=== PATIENT | female | born 2005 | race Caucasian/White ===

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

== ENCOUNTER 2025-01-09 19:45 | Emergency (ER) | payer BC, SELFPAY ==
--- OUTSIDE RECORDS SUMMARY | 2025-01-09 19:48 | XMS_ITS | Encounter Summary ---
Author Organization [place] Address [facility] [place] [address] Care Team Providers Care Automotive Tire Testing Supervisor Name Role Phone [facility], [facility] Primary Care Provider Encounter Details Date Type Department Care Team (Late st Contact Info) Description 01/04/2025 Documentation Only [facility] [place] [address] [place], [place] [phone] Demi Beard RN Social History Tobacco Use Types Packs/Day Years Used Date Smoking Tobacco: Never Smokeless Tobacco: Never Alcohol Use Standard Drinks/Week Comments Not Asked 0 (1 standard drink = 0.6 oz pur e alcohol) Adolescent Education Answer Date Record ed Getting School Help Needed Not on file 06/01 Estimated Date of Delivery Comme nts Yes 08/13/2025 Based on Ultraso und Sex and Gender Information Value Date Recorded Sex Assigned at Not on file Legal Sex Female 4:49 AM 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 [address] [place], [place] [phone] PCP - General 09/26/15 documented as of this encounter
--- OUTSIDE RECORDS SUMMARY | 2025-01-09 19:48 | XMS_ITS | Encounter Summary ---
Author Organization [place] Address [address] [place] [address]. [place] [address] Care Team Providers Care Agricultural Plow Operator Name Role Phone [facility], [facility] Primary Care Provider Reason for Visit * Reason Comments Ultrasound L2-BMI 45 Encounter Details Date Type Department Care Team (Late st Contact Info) Description 09/22/2023 PRE VISIT [facility] [place] [address] [facility] [address] [place] [address] Uzma Dang RN Ultrasound (L2-BMI [...] on file Legal Sex Female 4:49 AM STONE LAYER Gender Identity Not on file Sexual Orientation Not on file documented as of this encounter Plan of Treatment Not on file documented as of this encounter Visit Diagnoses Not on filedocumented in this encounter Care Teams Agricultural Plow Operator Relationship Specialty Start Date End Date [facility], [facility] [address] [place], [place] [phone] PCP - General 09/26/15 documented as of this encounter
--- OUTSIDE RECORDS SUMMARY | 2025-01-09 19:48 | XMS_ITS | Encounter Summary ---
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 Radha Schaefer, RN [facility] Nurse Advisor 7:36 AM 12/11/2024 documented in this encounter Plan of Treatment Not on file documented as of this encounter Visit Diagnoses Not on filedocumented in this encounter Care Teams Paradi Operator Relationship Specialty Start Date End Date [facility], [facility] [place] [address] [place] [address] PCP - General 09/26/15 documented as of this encounter
--- OUTSIDE RECORDS SUMMARY | 2025-01-09 19:48 | XMS_ITS | Encounter Summary ---
Author Organization [place] Address [address] [place] [place] [address] Care Team Providers Care Associate Curator Name Role Phone [facility], [facility] [place] Primary Care Provider Encounter Details Date Type Department Care Team (Late st Contact Info) Description 01/03/2025 Telephone [facility] [place] [address] [place], [place] [phone] Demi Beard RN Social History Tobacco Use [...] on file Legal Sex Female 4:49 AM PETROLEUM SAMPLER Gender Identity Not on file Sexual Orientation Not on file documented as of this encounter Miscellaneous Notes * Telephone Encounter - Demi Beard RN - 01/03/2025 11:06 AM CDT Call back from rosa Mcneil fax over op note from prior C/S. * Telephone Encounter - Demi Beard RN - 01/03/2025 9:54 AM CDT LVM for Khurram at [facility], called to get records of Cosmo's prior delivery and op note. documented in this encounter Plan of Treatment Not on file documented as of this encounter Visit Diagnoses Not on filedocumented in this encounter Care Teams Associate Curator Relationship Specialty Start Date End Date [facility], [facility] [place] [address] [place] [address] PCP - General 09/26/15 documented as of this encounter
--- OUTSIDE RECORDS SUMMARY | 2025-01-09 19:48 | XMS_ITS | Encounter Summary ---
Author Organization [place] Address Critical access hospital0 [facility] 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
--- OUTSIDE RECORDS SUMMARY | 2025-01-09 19:48 | XMS_ITS | Encounter Summary ---
Author Organization [place] Address [address] [place] [address]. [place] [address] Care Team Providers Care Orthotics Prosthetics Assistant Name Role Phone [facility] [place] Primary Care Provider Encounter Details Date Type Department Care Team (Late st Contact Info) Description 12/29/2024 Medical Correspondence [facility] Information Management [address] [facility] [address] [place] [address] Scan, Non-Provider Social History Tobacco Use Types Packs/Day Years [...] on file Legal Sex Female 4:49 AM EEG TECH Gender Identity Not on file Sexual Orientation Not on file documented as of this encounter Plan of Treatment Not on file documented as of this encounter Visit Diagnoses Not on filedocumented in this encounter Care Teams Orthotics Prosthetics Assistant Relationship Specialty Start Date End Date [facility] [address] [place], [place] [phone] PCP - General 09/26/15 documented as of this encounter
--- OUTSIDE RECORDS SUMMARY | 2025-01-09 19:48 | XMS_ITS | Encounter Summary ---
Author Organization [place] Address [facility] 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
--- OUTSIDE RECORDS SUMMARY | 2025-01-09 19:48 | XMS_ITS | Clinical Summary ---
Author Organization [place] Address [address] [place] [address]. [place] [address] Care Team Providers Care Mat Roller Name Role Phone [facility] [place] Primary Care Provider Allergies No known active [...] nts Yes 08/13/2025 Based on Ultraso und Encounters Date Type Department Care Team Description 01/04/2025 PRE VISIT [facility] [place] [address] [place] [address] Demi Beard RN Genetic Counseling; Ultrasound; Consult 01/04/2025 Documentation Only [facility] [place] [address] [place] [address] Demi Beard RN 01/03/2025 Orders Only [facility] [address] [place] [address] Demi Beard RN Obesity during (Primary Dx); Family history of congenital heart defect 01/03/2025 Telephone [facility] [address] [place] [address] Demi Beard RN 01/03/2025 Care Coordination [facility] [address] [place] [address] Demi Beard RN 12/29/2024 Medical Correspondence [facility] Information Management [address] [place] [address] [address] [place] [address] Scan, Non-Provider 12/29/2024 Transcribe Orders [facility] Maternal [facility] [address] [facility] [address] [place] [address] Melissa Grijalva APRN CNM related condition, antepartum (Primary Dx) 12/11/2024 Telephone [facility] [address] [place] [address] Chanel Schaefer, RN Patient Request from Last 3 Months Social History Tobacco [...] on file Legal Sex Female 4:49 AM TECHNICAL DEVELOPER Gender Identity Not on file Sexual Orientation Not on file Last Filed Vital Signs Vital Sign Reading Time Taken Comments Blood Pressure 120/55 08/05/2021 8:36 AM TECHNICAL DEVELOPER Pulse 102 08/05/2021 8:36 AM TECHNICAL DEVELOPER Temperature 37.2 C (99 F) 08/05/2021 8:36 AM TECHNICAL DEVELOPER Respiratory Rate 16 08/05/2021 8:36 AM TECHNICAL DEVELOPER Oxygen Saturation 96% 08/05/2021 8:36 AM TECHNICAL DEVELOPER Inhaled Oxygen Concentration - - Weight 118.1 kg (260 lb 6.4 oz) 08/05/2021 8:36 AM TECHNICAL DEVELOPER Height 165.1 cm (5' 5) 08/05/2021 8:3 6 AM TECHNICAL DEVELOPER Body Mass Index 43.33 08/05/2021 8:36 AM TECHNICAL DEVELOPER Body Mass Index Percentile 99.86% 08/05/2021 8:3 6 AM TECHNICAL DEVELOPER Growth Chart: CDC (Girls, 2- 20 Years) Plan of Treatment Health Maintenance Due Date Last Done Comments ADVANCE CARE PLANNING 2005 ANNUAL REVIEW OF HM ORDERS 2005 CHLAMYDIA SCREENING 2005 YEARLY PREVENTIVE VISIT 2008 HIV SCREENING 2020 MENINGITIS B VACCINE (1 of 2 - Standard) 2021 HEPATITIS C SCREENING 2023 COVID-19 VACCINE ( season) 2024 PHQ-2 (once per calendar year) 2024 MATERNAL SCREENING DISCUSSION 01/15/2025 INFLUENZA VACCINE (Season Ended) 2025 07/15/2017, 05/14/2016, 05/17/2015, Additional history exists RSV VACCINE (1 - Risk 1-dose series) 06/18/2025 DTAP/TDAP/TD VACCINE (8 - Td or Tdap) 01/06/2034 01/07/2024, 11/08/2017, 02/27/2011, Additional history exists ZOSTER VACCINE (1 of 2) 2055 HIB VACCINE Aged Out 2005, 07/17, 2005 No longer eligible based on patient's age to complete this topic HEPATITIS B VACCINE Completed 2005, 2005, 2005 PNEUMOCOCCAL VACCINE: PEDIATRICS (0 to 5 YEARS) AND AT-RISK PATIENTS (6 to 49 YEARS) Aged Out 05/08/2008, 2005, 2005, Additional history exists No longer eligible based on patient's age to complete this topic IPV VACCINE Completed 02/27/2011, 0508/2005, 2005, Additional history exists VARICELLA VACCINE Completed 02/27/2011, 06/18/2006 MENINGITIS VACCINE Aged Out 11/08/2017, 11/08/2017 No longer eligible based on patient's age to complete this topic HPV VACCINE Completed 12/23/2018, 11/08/2017 [place] Care Teams Mat Roller Relationship Specialty Start Date End Date Clinic, [facility] [address] [facility] [place] [address] PCP - General 09/26/15
--- OUTSIDE RECORDS SUMMARY | 2025-01-09 19:48 | XMS_ITS | Encounter Summary ---
Author Organization [facility] Address [address] [place] [address] Care Team Providers Care Linen Supervisor Name Role Phone [facility], [facility] Primary Care Provider Reason for Referral * CV Testing (Routine) - Pending Review Specialty Diagnoses / Procedures Referred By Kandy kiser Referred To Contact Diagnoses Obesity during Family history of congenital heart defect Procedures Echo (TTE) Complete Kaleigh Orozco MD [address] [address] Phone: tel: fax: Referral ID Status Reason Start Date Expiration Date V isits Requested Visits Authorized [id number] Pending Review 01/03/2025 01/03/2026 1 1 * Consultation (Routine: Next available opening) - Pending Review Specialty Diagnoses / Procedures Referred By Kandy kiser Referred To Contact Diagnoses Obesity during Family history of congenital heart defect Kaleigh Orozco MD [address] [place] [address] Phone: tel: fax: Referral ID Status Reason Start Date Expiration Date V isits Requested Visits Authorized [id number] Pending Review 01/03/2025 01/03/2026 1 1 * Consultation (Routine: Next available opening) - Pending Review Specialty Diagnoses / Procedures Referred By Contac t Referred To Contact Diagnoses Obesity during Family history of congenital heart defect Kaleigh Orozco MD [address] [place] [address] Phone: tel: fax: Referral ID Status Reason Start Date Expiration Date V isits Requested Visits Authorized [id number] Pending Review 01/03/2025 01/03/2026 1 1 Question Answer Office Visit Type: MFM Consult Comments RAD consult * Diagnostic Imaging Ultrasound (Routine) - Pending Review Specialty Diagnoses / Procedures Referred By Contac t Referred To Contact Radiology. Diagnoses Obesity during Family history of congenital heart defect Procedures Maternal Nuchal Translucency Kaleigh Orozco MD [address] [place] [address] Phone: tel: fax: Referral ID Status Reason Start Date Expiration Date V isits Requested Visits Authorized [id number] Pending Review 01/03/2025 01/03/2026 1 1 * Diagnostic Imaging Ultrasound (Routine) - Pending Review Specialty Diagnoses / Procedures Referred By Contac t Referred To Contact Radiology. Diagnoses Obesity during Family history of congenital heart defect Procedures [facility] US Comprehensive Single Kaleigh Orozco MD [address] [place] [address] Phone: tel: fax: Referral ID Status Reason Start Date Expiration Date V isits Requested Visits Authorized [id number] Pending Review 01/03/2025 01/03/2026 1 1 Encounter Details Date Type Department Care Team (Late st Contact Info) Description 01/03/2025 Orders Only [facility] [place] [address] [place] [address] Demi Beard RN Obesity during (Primary Dx); Family history of congenital heart defect Social History Tobacco Use Types Packs/Day Years [...] on file 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 Gender Identity Not on file Sexual Orientation Not on file documented as of this encounter Plan of Treatment Scheduled Orders Name Type Priority Associated Diagnoses Order Schedule [facility] Comprehensive Single Imaging Routine Obesity during Family history of congenital heart defect Expected: 03/14/2025 (Approximate), Expires: 11/03/2025 Maternal Nuchal Translucency Imaging Routine Obesity during Family history of congenital heart defect Expected: 01/31/2025 (Approximate), Expires: 11/03/2025 Echo (TTE) Complete Echocardiography Routine Obesity during Family history of congenital heart defect Expected: 04/11/2025 (Approximate), Expires: 01/03/2026 Scheduled Referrals Name Type Priority Associated Diagnoses Orde r Schedule [facility] Office Visit - [facility] Consult Referral Routine: Next available opening Obesity during Family history of congenital heart defect Expected: 01/31/2025 (Approximate), Expires: 01/03/2026 [facility] Genetic Counseling Referral Routine: Next available opening Obesity during Family history of congenital heart defect Expected: 01/31/2025 (Approximate), Expires: 01/03/2026 documented as of this encounter Visit Diagnoses Diagnosis Obesity during - Primary Family history of congenital heart defect Family history of congenital anomalies documented in this encounter Care Teams Linen Supervisor Relationship Specialty Start Date End Date Clinic, [facility] [address] [place] [address] PCP - General 09/26/15 documented as of this encounter
--- OUTSIDE RECORDS SUMMARY | 2025-01-09 19:48 | XMS_ITS | Clinical Summary ---
Author Organization [employer] Address [address] [place] [address] Care Team Providers Care Salesperson Men'S Hats Name Role Phone Pcp, No Primary Care Provider Unavailabl Esthela Archibald MBBS Unavailable [phone] Unavailable Adeola Colindres PT Unavailable [phone] Allergies Active Allergy Reactions Criticality Noted Date [...] 8 Acute sanguinous otitis media 12/01/2007 11/07/2009 Immunizations Immunization Administration Dates Next Due DTaP 05/08/2008 [id number] (Pediarix) 2005,2005,1 10/13/2004 DTaP-IPV (Kinrix) 02/27/2011 HIB [...] on file Legal Sex Female 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 Gender Identity Not on file Sexual Orientation Not on file Obstetrics History Para Term AB IAB SAB Ectopic Multiple Livin g Live Births 1 Date Outcome GA Total Labor Labor/2nd/3rd Weight Sex Type Anes PTL Annika A1 A5 Name Clin Last Filed Vital Signs Vital Sign Reading Time Taken Comments Blood Pressure 122/64 09/21/2024 2:11 PM CORPORATE PLANNING MANAGER Pulse 85 09/21/2024 2:11 PM CORPORATE PLANNING MANAGER Temperature 36.9 C (98.4 F) 12/29/2023 9:30 PM CDT Respiratory Rate 16 12/29/2023 9:30 PM CDT Oxygen Saturation 98% 09/21/2024 2:11 PM CORPORATE PLANNING MANAGER Inhaled Oxygen Concentration - - Weight 145.7 kg (321 lb 3.2 oz) 09/21/2024 2:11 PM CORPORATE PLANNING MANAGER Height 168.5 cm (5' 6.34) 09/21/2024 2:11 PM CS T Head Circumference 47 cm 06/18/2006 9:45 AM CORPORATE PLANNING MANAGER Head Circumference Percentile 93.42% 06/18/2006 9:45 AM CORPORATE PLANNING MANAGER Growth Chart: WHO (Girls, 0- 2 years) Body Mass Index 51.31 09/21/2024 2:11 PM CORPORATE PLANNING MANAGER Plan of Treatment Health Maintenance Due Date Last Done Comments Well Child Check for age 3-20 12/24/2019 12/23/2018, 11/08/2017, 02/27/2011, Additional history exists HIV for age 15-65 2020 Chlamydia for age 16-24 2021 Hepatitis C screening for age 18-79 2023 COVID-19 vaccine series ( season) 2024 Influenza Vaccine (Season Ended) 2025 07/15/2017, 05/14/2016, 05/17/2015, Additional history exists Depression screening for age 12+ 05/19/2025 05/19/2024, 09/22/2022, 11/01/2020, Additional history exists BMI (ht and wt on same day) for age 18+ 09/21/2025 09/21/2024, 05/19/2024 Tetanus booster 01/06/2034 01/07/2024, 11/08/2017 Hepatitis B series for 19+ Completed 12/14, 2005, 2005 Pneumococcal series for age 6-49 Aged Out 05/08/2008, 2005, 2005, Additional history exists No longer eligible based on patient's age to complete this topic Meningococcal series for age 11-21 Aged Out 11/08/2017 No longer eligible based on patient's age to complete this topic HPV series for age 9-26 Completed 12/23/2018, 11/08 Tdap Completed 01/07/2024, 11/08/2017 Insurance [place] CROSS OF NON-NC-ITS BLUE CROSS OF NON-NC-ITS Advance Directives * Full Code (Latest Code Status on File) Date Activated Date Inactivated Comments 11/11/2009 11:27 AM 11/11/2009 3:14 PM Care Teams Salesperson Men'S Hats Relationship Specialty Start Date End Date Pcp, No . PCP - General 12/29/23 Esthela Leroy MBBS [address] [place] [address] Consulting Physician Family Practice 11/27/[address] [place] [id number] Event Lighting Specialist 11/27/24 Adeola Colindres, PT [address] [place] [id number] Physical Therapist Physical Therapist 12/04/24
--- OUTSIDE RECORDS SUMMARY | 2025-01-09 19:48 | XMS_ITS | Encounter Summary ---
Author Organization [facility] Address [address] [place] [address]. [place] [address] Care Team Providers Care Senior Asset Manager Name Role Phone [facility] Primary Care Provider Reason for Referral * Consultation (Routine: Next available opening) - Pending Review Specialty Diagnoses / Procedures Referred By Contac t Referred To Contact Diagnoses related condition, antepartum Rudi, Melissa, [facility] [address] [place] [address] Phone: tel: fax: [facility] [place] [address] [place] [address] Phone: tel: fax: Referral ID Status Reason Start Date Expiration Date V isits Requested Visits Authorized [id number] Pending Review 12/29/2024 12/29/2025 1 1 Question Answer Preferred Location: [facility] Working Due Date: 08/13/2025 US Ordering Instructions: If US ONLY is requested, select appropriate US Order and DO NOT order MFM Consult. Reason for Referral: Consult Consult Type: MF MD (Consult may be ordered for clinical questions beyond US interpretation) Indication (* indicates inclusion of genetic counseling): Other (enter details in Comments) - obesity and on ozempic at time of conception Fax number results need to be sent to: [facility] Melissa Grijalva [phone] Comments obesity and on ozempic at time of conception Encounter Details Date Type Department Care Team (Latest Contact Info) Description 12/29/2024 Transcribe Orders [facility] [address] [place] [address] Melissa Grijalva APRN CNM [facility] [address] [place] [address] related condition, antepartum (Primary Dx) Social History Tobacco Use Types [...] on file Legal 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 Gender Identity Not on file Sexual Orientation Not on file documented as of this encounter Plan of Treatment Scheduled Referrals Name Type Priority Associated Diagnoses Orde r Schedule [facility] Referral - Referral Routine: Next available opening related condition, antepartum Expected: 12/29/2024 (Approximate), Expires: 06/27/2025 documented as of this encounter Visit Diagnoses Diagnosis related condition, antepartum- Primary documented in this encounter Care Teams Senior Asset Manager Relationship Specialty Start Date End Date Clinic, [facility] [address] [place], [place] [id number] PCP - General 09/26/15 documented as of this encounter
[2025-01-09 19:49] VITALS: BP 135/81; PULSE 94; RESP 20; TEMP 35.8; O2SAT 98; BMI 52.3
--- NOTE | 2025-01-09 20:02 | CRLHL7_ITS ---
For Patients: As a result of the Century Cures Act, medical imaging exams and procedure reports are released immediately into your electronic medical record. You may view this report before your referring provider. If you have questions, please contact your health care provider. INDICATION: First trimester dating and viability. TECHNIQUE: Ultrasound OB pelvis transabdominal and transvaginal. Real-time carmona-scale imaging of the pelvis was performed. COMPARISON: None. FINDINGS: Intrauterine gestation: Single. heart activity (bpm): 167 beats per minute. [place]-rump length: 2.5 cm. Estimated ultrasound age: 9 weeks 1 day. JERSON by ultrasound: 08/13/2025. Yolk sac: Normal. Perigestational hemorrhage: Subchorionic hematoma measuring 2.3 x 0.7 x 0.5 cm. Ovaries and adnexa: Right ovary not visualized. Left ovary unremarkable. Suspicious pelvic fluid collections: None. IMPRESSION: Single viable intrauterine . Subchorionic hematoma measuring up to 2.3 cm. Dictated by Charlie Tipton MD @ 01/09/2025 10:50:34 PM (Electronically Signed)
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
[2025-01-09 20:18] VITALS: BP 137/75; PULSE 88; RESP 16; O2SAT 98
[2025-01-09 20:30] LABS: Ur HCG Qualitative* POSITIVE (Negative)
== END 2025-01-09 21:50 | disposition home or self-care (01) ==
PROVIDERS: Emergency Provider Emergency Medicine Emergency Medical Services
DX: O46.91 Antepartum hemorrhage, unspecified, first trimester (principal)
CPT/HCPCS: 36415; 76817; 81025; 84702; 99284

== ENCOUNTER 2025-02-06 22:56 | Emergency (ER) | payer BC, SELFPAY ==
--- OUTSIDE RECORDS SUMMARY | 2025-02-06 22:58 | XMS_ITS | Clinical Summary ---
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 Gender Identity Not on file Sexual Orientation Not on file Obstetrics History Para Term AB IAB SAB Ectopic Multiple Livin g Live Births 1 Date Outcome GA Total Labor Labor/2nd/3rd Weight Sex Type Anes PTL Annika A1 A5 Name Clin Last Filed Vital Signs Vital Sign Reading Time Taken Comments Blood Pressure 122/64 09/21/2024 2:11 PM INDUSTRIAL GAS SERVICE HELPER Pulse 85 09/21/2024 2:11 PM INDUSTRIAL GAS SERVICE HELPER Temperature 36.9 C (98.4 F) 12/29/2023 9:30 PM CDT Respiratory Rate 16 12/29/2023 9:30 PM CDT Oxygen Saturation 98% 09/21/2024 2:11 PM INDUSTRIAL GAS SERVICE HELPER Inhaled Oxygen Concentration - - Weight 145.7 kg (321 lb 3.2 oz) 09/21/2024 2:11 PM INDUSTRIAL GAS SERVICE HELPER Height 168.5 cm (5' 6.34) 09/21/2024 2:11 PM CS T Head Circumference 47 cm 06/18/2006 9:45 AM INDUSTRIAL GAS SERVICE HELPER Head Circumference Percentile 93.42% 06/18/2006 9:45 AM INDUSTRIAL GAS SERVICE HELPER Growth Chart: WHO (Girls, 0- 2 years) Body Mass Index 51.31 09/21/2024 2:11 PM INDUSTRIAL GAS SERVICE HELPER Plan of Treatment Health Maintenance Due Date [...] 12/23/2018, 11/08 Tdap Completed 01/07/2024, 11/08/2017 Insurance [place] CROSS OF NON-DE-ITS BLUE CROSS OF NON-DE-ITS Advance Directives * Full Code (Latest Code Status on File) Date Activated Date Inactivated Comments 11/11/2009 11:27 AM 11/11/2009 3:14 PM Care Teams Accounts Payable Supervisor Relationship Specialty Start Date End Date Pcp, No . PCP - General 12/29/23 Esthela Leroy MBBS [address] [place] [place] [address] Consulting Physician Family Practice 11/27/[address] [place] [id number] Surgical Supply Assistant 11/27/24 Adeola Colindres, PT [address] [place] [id number] Physical Therapist Physical Therapist 12/04/24
[2025-02-06 23:06] VITALS: BP 151/98; PULSE 79; RESP 16; TEMP 36.7; O2SAT 100; BMI 53.4
[2025-02-06 23:15] LABS: Appearance Urine Cloudy (Clear); Bilirubin Urine Negative (Negative); Blood Urine 3+ (Negative); Color Urine Yellow (Yellow); Glucose Urine Negative (Negative); Ketones Urine 3+ (Negative); Leukocyte Esterase Urine Negative (Negative); Nitrite Urine Negative (Negative); Protein Urine 1+ (Negative); Specific Gravity Urine >= 1.030 (1.000-1.030); Urobilinogen Urine 0.2 (0.2-1.0)
[2025-02-06 23:27] LABS: Bacteria Urine Few; Squamous Epithelial Cell Urine Moderate (None-Few)
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
--- OUTSIDE RECORDS SUMMARY | 2025-02-06 23:56 | XMS_ITS | Encounter Summary ---
Author Organization [place] Address [address] [facility] 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 [place] [address] Kaleigh Orozco MD [address] [facility] [address] [place] [address] documented as of this encounter Visit Diagnoses Not on filedocumented in this encounter Care Teams Chief Lock Tender Operator Relationship Specialty Start Date End Date [facility], Saida Norris [address] [place] [address] PCP - General 09/26/15 documented as of this encounter
--- OUTSIDE RECORDS SUMMARY | 2025-02-06 23:56 | XMS_ITS | Encounter Summary ---
Author Organization [place] Address [facility] [place] [address] Care Team Providers Care Hr Specialist Name Role Phone Clinic, Saida [place] Primary Care Provider Reason for Referral * CV Testing (Routine) - Pending Review Specialty Diagnoses / Procedures Referred By Contac t Referred To Contact Diagnoses Obesity during Family history of congenital heart defect Procedures Echo (TTE) Complete Kaleigh Orozco MD [address] [address] Phone: tel: fax: Referral ID Status Reason Start Date Expiration Date V isits Requested Visits Authorized [id number] Pending Review 01/03/2025 01/03/2026 1 1 Encounter Details Date Type Department Care Team (Late st Contact Info) Description 01/03/2025 Orders Only [facility] [place] [address] [place] [address] Demi Beard RN Obesity during (Primary Dx); [...] on file 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 Gender Identity Not on file Sexual Orientation Not on file documented as of this encounter Plan of Treatment Upcoming Encounters Date Type Department Care Team (Late st Contact Info) Description 04/12/2025 8:00 AM CDT Appointment [facility] Care [address] [place] [phone] Kaleigh Orozco MD [address] [facility] [address] [facility] [address] [place], [place] [address] Scheduled Orders Name Type Priority Associated Diagnoses Orde r Schedule Echo (TTE) Complete Echocardiography Routine Obesity during Family history of congenital heart defect Expected: 04/11/2025 (Approximate), Expires: 01/03/2026 documented as of this encounter Visit Diagnoses Diagnosis Obesity during - Primary Family history of congenital heart defect Family history of congenital anomalies documented in this encounter Care Teams Hr Specialist Relationship Specialty Start Date End Date Clinic, Saida Lawrence [address] [place], [place] [id number] PCP - General 09/26/15 documented as of this encounter
--- OUTSIDE RECORDS SUMMARY | 2025-02-06 23:56 | XMS_ITS | Encounter Summary ---
Author Organization [place] Address [address] [place] [address]. 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 Gender Identity Not on file Sexual Orientation Not on file documented as of this encounter Plan of Treatment Upcoming Encounters Date Type Department Care Team ([facility] Contact Info) Description 04/12/2025 8:00 AM CDT Appointment [facility] [address] [place] [address] Kaleigh Orozco MD [address] [place] [address] [place] [address] documented as of this encounter Visit Diagnoses Not on filedocumented in this encounter Care Teams Curb Builder Relationship Specialty Start Date End Date Clinic, Saida [place] [address] [place] [address] PCP - General 09/26/15 documented as of this encounter
--- OUTSIDE RECORDS SUMMARY | 2025-02-06 23:56 | XMS_ITS | Clinical Summary ---
Author Organization [place] Address [address] [place] [address]. [place] [address] Care Team Providers Care Child Welfare Worker Name Role Phone [facility] [place] Primary Care Provider Allergies No known active [...] Department Care Team Description 01/04/2025 PRE VISIT [facility] [place] [address] [place] [address] Demi Beard RN Genetic Counseling; Ultrasound; Consult 01/04/2025 Documentation Only [facility] [place] [address] [place] [address] Demi Beard RN 01/03/2025 Orders Only [facility] [address] [place] [address] Demi Beard RN Obesity during (Primary Dx); Family history of congenital heart defect 01/03/2025 Telephone [facility] [address] [place] [address] Demi Beard RN 01/03/2025 Care Coordination [facility] [address] [place] [address] Demi Beard RN 12/29/2024 Medical Correspondence [facility] Information Management [address] [place] [address] [address] [place] [address] Scan, Non-Provider 12/29/2024 Transcribe Orders [facility] [address] [facility] [address] [place] [address] Melissa Grijalva APRN CNM related condition, antepartum (Primary Dx) 12/11/2024 Telephone [facility] [address] [place] [address] Chanel Schaefer, RN Patient Request [...] on file Legal 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 Gender Identity Not on file Sexual Orientation Not on file Last Filed Vital Signs Vital Sign Reading Time Taken Comments Blood Pressure 120/55 08/05/2021 8:36 AM DRAGSAW OPERATOR Pulse 102 08/05/2021 8:36 AM DRAGSAW OPERATOR Temperature 37.2 C (99 F) 08/05/2021 8:36 AM DRAGSAW OPERATOR Respiratory Rate 16 08/05/2021 8:36 AM DRAGSAW OPERATOR Oxygen Saturation 96% 08/05/2021 8:36 AM DRAGSAW OPERATOR Inhaled Oxygen Concentration - - Weight 118.1 kg (260 lb 6.4 oz) 08/05/2021 8:36 AM DRAGSAW OPERATOR Height 165.1 cm (5' 5) 08/05/2021 8:3 6 AM DRAGSAW OPERATOR Body Mass Index 43.33 08/05/2021 8:36 AM DRAGSAW OPERATOR Body Mass Index Percentile 99.86% 08/05/2021 8:3 6 AM DRAGSAW OPERATOR Growth Chart: CDC (Girls, 2- 20 Years) Plan of Treatment Upcoming Encounters Date Type Department Care Team (Late st Contact Info) Description 04/12/2025 8:00 AM CDT Appointment [facility] Care [address] [place] [address] Kaleigh Orozco MD [address] [facility] [address] [place] [address] Health Maintenance Due Date Last Done Comments ADVANCE CARE PLANNING 2005 ANNUAL REVIEW OF HM ORDERS 2005 CHLAMYDIA SCREENING 2005 YEARLY PREVENTIVE VISIT 2008 HIV SCREENING 2020 MENINGITIS B VACCINE (1 of 2 - Standard) 2021 HEPATITIS C SCREENING 2023 COVID-19 VACCINE ( - season) 2024 PHQ-2 (once per calendar year) [...] complete this topic IPV VACCINE Completed 02/27/2011, 08/2005, 2005, Additional history exists VARICELLA VACCINE Completed 02/27/2011, 06/18/2006 MENINGITIS VACCINE Aged Out 11/08/2017, 11/08/2017 No longer eligible based on patient's age to complete this topic HPV VACCINE Completed 12/23/2018, 11/08/2017 [place] Care Teams Child Welfare Worker Relationship Specialty Start Date End Date Clinic, Saida [place] [address] [place] [address] PCP - General 09/26/15
--- OUTSIDE RECORDS SUMMARY | 2025-02-06 23:56 | XMS_ITS | Encounter Summary ---
Author Organization [place] Address [address] [place] [address]. [place] [address] Care Team Providers Care Varnish Supervisor Name Role Phone [facility], [facility] Primary Care Provider Reason for Referral * Consultation (Routine: Next available opening) - Pending Review Specialty Diagnoses / Procedures Referred By Contac t Referred To Contact Diagnoses related condition, antepartum Rudi, Melissa, [facility] [address] [place] [address] Phone: tel: fax: [facility] [place] [address] [facility] [address] [place] [address] Phone: tel: fax: Referral ID Status Reason Start Date Expiration Date V isits Requested Visits Authorized [id number] Pending Review 12/29/2024 12/29/2025 1 1 Question Answer Preferred Location: [facility] Working Due Date: 08/13/2025 [place] Ordering Instructions: [...] number results need to be sent to: [facility] Melissa Grijalva [phone] Comments obesity and on ozempic at time of conception Encounter Details Date Type Department Care Team (Latest Contact Info) Description 12/29/2024 Transcribe Orders [facility] [place] [address] [facility] [address] [place] [address] Melissa Grijalva APRN [place] [facility] [address] [place] [address] related condition, antepartum (Primary Dx) Social History [...] on file 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 Gender Identity Not on file Sexual Orientation Not on file documented as of this encounter Plan of Treatment Upcoming Encounters Date Type Department Care Team (Late st Contact Info) Description 04/12/2025 8:00 AM CDT Appointment [facility] [address] [place] [address] Kaleigh Orozco MD [address] [facility] [address] [place], [place] [address] Scheduled Referrals Name Type Priority Associated Diagnoses Orde r Schedule [facility] Referral - Referral Routine: Next available opening related condition, antepartum Expected: 12/29/2024 (Approximate), Expires: 06/27/2025 documented as of this encounter Visit Diagnoses Diagnosis related condition, antepartum- Primary documented in this encounter Care Teams Varnish Supervisor Relationship Specialty Start Date End Date Clinic, Saida Lawrence [address] [place] [address] PCP - General 09/26/15 documented as of this encounter
--- OUTSIDE RECORDS SUMMARY | 2025-02-06 23:56 | XMS_ITS | Encounter Summary ---
Author Organization [place] Address [address] [facility] 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 Gender Identity Not on file Sexual Orientation Not on file documented as of this encounter Plan of Treatment Upcoming Encounters Date Type Department Care Team (Late Contact Info) Description 04/12/2025 8:00 AM CDT Appointment [facility] [address] [place] [address] Kaleigh Orozco MD [address] [place] [address] documented as of this encounter Visit Diagnoses Not on filedocumented in this encounter Care Teams Truck Body Builder Apprentice Relationship Specialty Start Date End Date [facility], Saida [place] [address] [place] [address] PCP - General 09/26/15 documented as of this encounter
--- OUTSIDE RECORDS SUMMARY | 2025-02-06 23:56 | XMS_ITS | Encounter Summary ---
Author Organization [place] Address [address] 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 * Telephone Encounter - Demi Beard RN - 01/03/2025 9:54 AM CDT LVM for Khurram at [facility], called to get records of Cosmo's prior delivery and op note. documented in this encounter Plan of Treatment Upcoming Encounters Date Type Department Care Team (Late st Contact Info) Description 04/12/2025 8:00 AM CDT Appointment [facility] [place] [facility] Care [address] [place] [address] Kaleigh Orozco MD [address] [facility] [address] [facility] [address] [place] [address] documented as of this encounter Visit Diagnoses Not on filedocumented in this encounter Care Teams Title Insurance Sales Representative Relationship Specialty Start Date End Date Clinic, Saida Lawrence [address] [place] [address] PCP - General 09/26/15 documented as of this encounter
--- OUTSIDE RECORDS SUMMARY | 2025-02-06 23:56 | XMS_ITS | Encounter Summary ---
Author Organization [place] Address [address] [place] [address]. 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 CAR PARKER Gender Identity Not on file Sexual Orientation Not on file documented as of this encounter Plan of Treatment Upcoming Encounters Date Type Department Care Team ([facility] Contact Info) Description 04/12/2025 8:00 AM CDT Appointment [facility] [address] [place] [address] Kaleigh Orozco MD [address] [place] [address] documented as of this encounter Visit Diagnoses Not on filedocumented in this encounter Care Teams Marketing Communications Assistant Relationship Specialty Start Date End Date [facility], Saida [place] [address] [place] [address] PCP - General 09/26/15 documented as of this encounter
--- OUTSIDE RECORDS SUMMARY | 2025-02-06 23:56 | XMS_ITS | Encounter Summary ---
Author Organization [facility] Address [address] [place] [address]. 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, [facility] [id number] [place], [place] [id number] PCP - General 09/26/15 documented as of this encounter
--- NOTE | 2025-02-07 00:03 | CRLHL7_ITS ---
For Patients: As a result of the Century Cures Act, medical imaging exams and procedure reports are released immediately into your electronic medical record. You may view this report before your referring provider. If you have questions, please contact your health care provider. Indication: Left abdominal pain, hematuria Technique: Sonographic evaluation of the kidneys and bladder Comparison: None Findings: Right: 12.4 x 4.4 x 6.1 centimeters. No hydronephrosis. No calculi. Left: 12.3 x 4.6 x 6.4 centimeters. No hydronephrosis. No calculi. Bladder: Unremarkable. Impression: No significant sonographic abnormality appreciated. Dictated by Vaibhav Beal MD @ 02/07/2025 1:09:39 AM (Electronically Signed)
--- NOTE | 2025-02-07 12:05 | CRLHL7_ITS ---
For Patients: As a result of the Century Cures Act, medical imaging exams and procedure reports are released immediately into your electronic medical record. You may view this report before your referring provider. If you have questions, please contact your health care provider. INDICATION: Abdominal pain. TECHNIQUE: Ultrasound OB pelvis transabdominal and transvaginal. Real-time carmona-scale imaging of the pelvis was performed. COMPARISON: None. FINDINGS: There is a single intrauterine gestation. The embryo demonstrates a regular cardiac rate measuring 150 beats per minute. The embryo`s crown rump length measurement of 7.6 cm corresponds to a gestational age of 13 weeks, 5 days with a sonographic due date of 08/10/2025. There are no gross abnormalities noted within the embryo at this early state of development. Posterior placenta. There is no sign of perigestational hemorrhage. The ovaries are of normal size. Probable tiny right corpus luteal cyst. There are no suspicious fluid collections noted in the cul-de-sac. IMPRESSION: Single viable intrauterine with gestational age of 13 weeks, 5 days based on crown-rump length. No abnormalities seen. Dictated by Rogerio Worrell MD @ 02/07/2025 1:12:11 AM (Electronically Signed)
== END 2025-02-07 01:52 | disposition home or self-care (01) ==
PROVIDERS: Emergency Medicine Emergency Medical Services; Emergency Provider Family Medicine; PCP Advanced Practice Midwife
DX: R10.9 Unspecified abdominal pain (principal); Z3A.13 13 weeks gestation of pregnancy
CPT/HCPCS: 76770; 76801; 81001; 81003; 87086; 99284

== ENCOUNTER 2025-02-28 10:26 | Outpatient (CLI) | payer BC, SELFPAY | END 2025-02-28 10:27 | disposition home or self-care (01) | PROVIDERS: PCP Advanced Practice Midwife; Visit Provider Advanced Practice Midwife | DX: Z34.82 Encounter for supervision of other normal pregnancy, second trimester (principal); R03.0 Elevated blood-pressure reading, without diagnosis of hypertension | CPT/HCPCS: 81511; 82565; 82570; 84156; 84450; 84460; 84550 ==

== ENCOUNTER 2025-03-01 14:30 | Outpatient (CLI) | payer BC, SELFPAY | END 2025-03-01 14:31 | disposition home or self-care (01) | PROVIDERS: PCP Advanced Practice Midwife; Referring Provider Advanced Practice Midwife; Visit Provider Advanced Practice Midwife | DX: O99.212 Obesity complicating pregnancy, second trimester (principal); E66.01 Morbid (severe) obesity due to excess calories; R03.0 Elevated blood-pressure reading, without diagnosis of hypertension; Z3A.16 16 weeks gestation of pregnancy | CPT/HCPCS: 82570; 84156 ==

== ENCOUNTER 2025-03-27 11:33 | Outpatient (CLI) | payer BC, SELFPAY | END 2025-03-27 11:34 | disposition home or self-care (01) | LOC: NFLDREF 03-30 19:42 | PROVIDERS: PCP Advanced Practice Midwife; Visit Provider Obstetrics & Gynecology | DX: O10.912 Unspecified pre-existing hypertension complicating pregnancy, second trimester (principal); O12.12 Gestational proteinuria, second trimester; Z3A.20 20 weeks gestation of pregnancy | CPT/HCPCS: 87491; 87591 ==

== ENCOUNTER 2025-05-25 14:23 | Outpatient (CLI) | payer BC, SELFPAY ==
--- NOTE | 2025-05-25 14:45 | CRLHL7_ITS ---
For Patients: As a result of the Century Cures Act, medical imaging exams and procedure reports are released immediately into your electronic medical record. You may view this report before your referring provider. If you have questions, please contact your health care provider. OBSTETRICAL ULTRASOUND FOLLOW-UP INDICATION: CHTN. Follow-up growth. CLINICAL HISTORY: JERSON by Ultrasound: 08/13/2025 Gestational Age: 28 weeks 4 days COMPARISON: 03/19/2025, 02/07/2025, 01/09/2025. TECHNIQUE: Real-time carmona-scale transabdominal imaging of the fetus was performed. FINDINGS: Fetus: Single Cervix: Not visualized positioning: Transverse Amniotic Fluid: 5.7 cm SDP Placenta technique: Transabdominal Placenta position: Posterior heart rate: 152 bpm BIOMETRY: BPD: 7.4 cm, 29 weeks 5 days, 74.6% HC: 27.6 cm, 30 weeks 1 day, 66.0% AC: 26.7 cm, 30 weeks 6 days, 94.9% FL: 5.5 cm, 29 weeks 0 days, 48.1% FL/AC Ratio: 20.57% HC/AC ratio: 1.03 EFW: 1513 grams; 3 lbs. 5 oz. age by this ultrasound: 30 weeks 0 days JERSON by this ultrasound: 08/03/2025 Percentile by JERSON: 89.6% IMPRESSION: 1. Sonographic gestational age is 30 weeks 0 days and sonographic due date is 08/03/2025. Sonographic age is 10 days ahead of the clinical age. 2. Estimated weight is 90th percentile. Abdominal circumference is 95th percentile. 3. Right renal pelvis measures 5.5 mm. Left renal pelvis measures 4.4 mm. CHARLIE SAHU M.D. Diagnostic Radiologist [email or web address] Transcribed: 5:[address]/Dictated by: Charlie Sahu MD @ 05/25/2025 4:38:00 PM (Electronically Signed)
== END 2025-05-25 14:24 | disposition home or self-care (01) ==
LOC: US 14:24
PROVIDERS: PCP Advanced Practice Midwife; Visit Provider Obstetrics & Gynecology
DX: O10.913 Unspecified pre-existing hypertension complicating pregnancy, third trimester (principal); O99.213 Obesity complicating pregnancy, third trimester; Z3A.28 28 weeks gestation of pregnancy
CPT/HCPCS: 76816; 86592

== ENCOUNTER 2025-06-03 21:09 | Outpatient (CLI) | payer BC, SELFPAY ==
[2025-06-03] VITALS (7 sets, daily range): BP systolic 117–154; BP diastolic 57–78; PULSE 84–100; O2SAT 97
[2025-06-03 22:18] LABS: Hematocrit* 31.7 % (33.0-51.0); Hemoglobin* 9.8 gm/dL (12.0-16.0); Mean Corpuscular HGB Conc 31 gm/dL (32-36); Mean Corpuscular Hemoglobin 25 pg (26-34); Mean Corpuscular Volume 81 fL (80-100); Red Blood Count* 3.94 m/uL (4.00-5.20); White Blood Count* 11.74 K/uL (4.50-11.00)
[2025-06-03 22:19] LABS: Slide Review Reflex No
[2025-06-03 22:33] LABS: Alanine Aminotransferase* 8 U/L (4-35); Aspartate Amino Transferase* 18 U/L (12-35); Blood Urea Nitrogen* 7 mg/dL (5-24); Creatinine* 0.6 mg/dL (0.6-1.2); Estimated Glomerular Filt Rate 133 ml/min
[2025-06-03 22:36] LABS: Appearance Urine Cloudy (Clear)
[2025-06-03 22:56] LABS: Protein Creatinine Ratio Urine 0.12 (0-0.19)
--- NOTE | 2025-06-04 00:05 | PC.OBNST ---
NST Note NST Note Start: 06/03/25 21:18 Freq: ONCE Status: Active Protocol: Document 06/03/25 23:20 [facility] (Rec: 06/04/25 00:05 [facility] No Response) NST Note 5 Para (# of births) 1 EDC 08/13/25 Gestational Age In 30 Weeks & 0 Days Weeks & Days High Risk Factors High Blood Pressure - Preexisting Patient Presented Contractions/cramping,Headache with Complaint(s) of Other Complaints Patient had high blood pressure readings at home. She states her swelling has increased in her hands and face and it hurts. She also has flank pain, right upper quadrant abdominal pain, bleeding yesterday, and contractions if she walks more than 50 feet. Reactive Yes Appropriate for Yes Gestational Age MARYANN Lai, MARAYNNC Date 06/03/25 Reactive Yes Appropriate for Yes Gestational Age MARYANN Lockwood, RN Date 06/03/25 OB NST charge Yes Complete NST Note Yes via Write Note The provider's electronic signature indicates the NST is reactive/appropriate for gestational age. *Note to provider: If an addendum is required, open the patient's chart and click on the note under the Nurse/Allied Health tab.
== END 2025-06-03 23:44 | disposition home or self-care (01) ==
LOC: OB OUT 21:09 → OB 21:31
PROVIDERS: PCP Advanced Practice Midwife; Visit Provider Obstetrics & Gynecology
DX: O10.913 Unspecified pre-existing hypertension complicating pregnancy, third trimester (principal); O47.03 False labor before 37 completed weeks of gestation, third trimester; R51.9 Headache, unspecified; Z3A.30 30 weeks gestation of pregnancy
CPT/HCPCS: 36415; 59025; 81001; 81003; 82565; 82570; 84156; 84450; 84460; 84520; 85027; 87086; G0463

== ENCOUNTER 2025-06-09 14:27 | Outpatient (CLI) | payer BC, SELFPAY ==
[2025-06-09 14:33] VITALS: PULSE 100; O2SAT 98
[2025-06-09 14:38] VITALS: PULSE 100; O2SAT 97
[2025-06-09 15:14] VITALS: PULSE 88; O2SAT 97
[2025-06-09 15:16] VITALS: BP 115/66; PULSE 81; PULSE 85; RESP 20; TEMP 36.6; O2SAT 98
[2025-06-09 15:54] LABS: Amnisure Rom* Negative
[2025-06-09 16:45] LABS: Bacterial Vaginosis* Negative (Negative); Candida glab/krus NOT DETECTED (No Detected)
[2025-06-09 17:00] VITALS: PULSE 73; O2SAT 97
[2025-06-09 17:01] VITALS: BP 109/50; PULSE 72; PULSE 73; RESP 16; TEMP 37.1; O2SAT 100
--- NOTE | 2025-06-16 17:01 | PC.OBNST ---
NST Note NST Note Start: 06/09/25 15:30 Freq: ONCE Status: Discharge Protocol: Document 06/09/25 17:05 [facility] (Rec: 06/09/25 20:01 [facility] [email or web address]) NST Note 5 Para (# of births) 1 EDC 08/13/25 Gestational Age In 30 Weeks & 5 Days Weeks & Days Patient Presented Other with Complaint(s) of Other Complaints Pt is unsure if she is leaking fluid or if she has a yeast or other infection. She experienced some green discharge and is having other vaginal symptoms, including itching/general discomfort. Reactive Yes Appropriate for Yes Gestational Age MARYANN Loredo, MARYANNC Date 06/09/25 MARYANN Hi RN Date 06/09/25 OB NST charge Yes Complete NST Note Yes via Write Note The provider's electronic signature indicates the NST is reactive/appropriate for gestational age. *Note to provider: If an addendum is required, open the patient's chart and click on the note under the Nurse/Allied Health tab.
== END 2025-06-09 17:30 | disposition home or self-care (01) ==
LOC: OB OUT 14:28 → OB 14:28
PROVIDERS: PCP Advanced Practice Midwife; Visit Provider Obstetrics & Gynecology
DX: O26.893 Other specified pregnancy related conditions, third trimester (principal); N89.8 Other specified noninflammatory disorders of vagina; Z3A.30 30 weeks gestation of pregnancy
CPT/HCPCS: 59025; 81513; 84112; 87081; 87481; 87653; 87661; G0463

== ENCOUNTER 2025-06-22 11:31 | Outpatient (CLI) | payer BC, SELFPAY ==
--- NOTE | 2025-06-22 11:30 | CRLHL7_ITS ---
For Patients: As a result of the Century Cures Act, medical imaging exams and procedure reports are released immediately into your electronic medical record. You may view this report before your referring provider. If you have questions, please contact your health care provider. OBSTETRICAL ULTRASOUND ??? BIOPHYSICAL PROFILE INDICATION: CHTN and obesity. Biophysical profile. Follow-up growth. CLINICAL HISTORY: JERSON by Ultrasound: 08/13/2025 Gestational Age: 32 weeks 4 days COMPARISON: 05/25/2025, 03/19/2025, 02/07/2025. TECHNIQUE: Real-time carmona-scale transabdominal imaging of the fetus was performed. FINDINGS: Fetus: Single Cervix: Not visualized positioning: Vertex Amniotic Fluid: 7.7 cm SDP BIOPHYSICAL PROFILE: Gross body movements: 2 tone: 2 Respiratory activity: 2 Amniotic fluid SDP: 2 Total score: 8 Placenta technique: Transabdominal Placenta position: Posterior heart rate: 149 bpm BIOMETRY: BPD: 8.8 cm, 35 weeks 5 days, >97% HC: 31.9 cm, 35 weeks 6 days, 91.4% AC: 29.5 cm, 33 weeks 3 days, 76.0% FL: 6.3 cm, 32 weeks 4 days, 35.6% FL/AC Ratio: 21.3% HC/AC ratio: 1.1 EFW: 2243 grams; 4 lbs. 15 oz. age by this ultrasound: 34 weeks 3 days JERSON by this ultrasound: 07/31/2025 Percentile by JERSON: 74.3% IMPRESSION: 1. Normal biophysical profile score of 8/8. 2. Sonographic gestational age is 34 weeks 3 days and sonographic due date is 07/31/2025. Sonographic age is 13 days ahead of the clinical age. 3. Estimated weight is 74th percentile. Abdominal circumference is 76th percentile. Biparietal diameter is greater than 97th percentile. CHARLIE SAHU M.D. Diagnostic Radiologist [email or web address] Transcribed: 4:[address]/Dictated by: Charlie Sahu MD @ 06/22/2025 2:27:00 PM (Electronically Signed)
== END 2025-06-22 11:32 | disposition home or self-care (01) ==
LOC: US 11:31
PROVIDERS: PCP Advanced Practice Midwife; Visit Provider Obstetrics & Gynecology
DX: O10.913 Unspecified pre-existing hypertension complicating pregnancy, third trimester (principal); O99.213 Obesity complicating pregnancy, third trimester; O36.63X0 Maternal care for excessive fetal growth, third trimester, not applicable or unspecified; Z3A.32 32 weeks gestation of pregnancy
CPT/HCPCS: 76816; 76819; 82565; 82570; 84156; 84450; 84460

== ENCOUNTER 2025-06-28 10:16 | Outpatient (CLI) | payer BC, SELFPAY | END 2025-06-28 10:17 | disposition home or self-care (01) | LOC: NFLDREF 14:29 | PROVIDERS: Obstetrics & Gynecology; PCP Advanced Practice Midwife; Referring Provider Advanced Practice Midwife; Visit Provider Obstetrics & Gynecology | DX: O10.919 Unspecified pre-existing hypertension complicating pregnancy, unspecified trimester (principal); D64.9 Anemia, unspecified | CPT/HCPCS: 82565; 82570; 82728; 84156; 84450; 84460 ==

== ENCOUNTER 2025-07-06 11:57 | Outpatient (CLI) | payer BC, SELFPAY ==
--- NOTE | 2025-07-06 12:15 | CRLHL7_ITS ---
For Patients: As a result of the Cures Act, medical imaging exams and procedure reports are released immediately into your electronic medical record. You may view this report before your referring provider. If you have questions, please contact your health care provider. OB ULTRASOUND BIOPHYSICAL PROFILE CLINICAL HISTORY: CHTN. TECHNIQUE: Real time carmona scale imaging of the fetus was performed. Transabdominal imaging performed. COMPARISON: 06/22/2025, 05/25/2025, 05/03/2025. FINDINGS: JERSON by US: 08/13/2025. GA: 34 weeks 4 days. Gestation: Single. Cervix: Not visualized. Positioning: Vertex. Amniotic Fluid: 5.3 cm SDP. BIOPHYSICAL PROFILE Gross Body Movements: 2 Tone: 2 Respiratory Activity: 2 Amniotic Fluid SDP: 2 Total Score: 8 Placenta: Technique: TA. Placenta Position: Posterior. Dopplers Heart Rate: 145 bpm. IMPRESSION: 1. Normal biophysical profile 03/23. 2. Grade 3 placenta. Charlie Saul M.D. Diagnostic Radiologist [email or web address] Transcribed: 3:19 pm DW/Dictated by: Charlie Saul MD @ 07/06/2025 2:44:00 PM (Electronically Signed)
== END 2025-07-06 11:58 | disposition home or self-care (01) ==
LOC: US 11:57
PROVIDERS: PCP Advanced Practice Midwife; Visit Provider Obstetrics & Gynecology
DX: O10.913 Unspecified pre-existing hypertension complicating pregnancy, third trimester (principal); Z3A.34 34 weeks gestation of pregnancy
CPT/HCPCS: 76819

== ENCOUNTER 2025-07-06 12:03 | Outpatient (CLI) | payer BC, SELFPAY | END 2025-07-06 12:04 | disposition home or self-care (01) | LOC: NFLDREF 07-12 14:46 | PROVIDERS: PCP Advanced Practice Midwife; Referring Provider Advanced Practice Midwife; Visit Provider Obstetrics & Gynecology | DX: O10.913 Unspecified pre-existing hypertension complicating pregnancy, third trimester (principal); Z3A.34 34 weeks gestation of pregnancy | CPT/HCPCS: 82565; 82570; 84156; 84450; 84460 ==

== ENCOUNTER 2025-07-13 14:38 | Outpatient (CLI) | payer BC, SELFPAY ==
[2025-07-14 11:33] LABS: Strep B DNA Probe POSITIVE (Negative)
[2025-07-14 12:04] LABS: Strep B Susceptibility Needed? No
== END 2025-07-13 14:39 | disposition home or self-care (01) ==
LOC: NFLDREF 14:39
PROVIDERS: Visit Provider Obstetrics & Gynecology
DX: O09.93 Supervision of high risk pregnancy, unspecified, third trimester (principal)
CPT/HCPCS: 82565; 82570; 84156; 84450; 84460; 87081; 87653

== ENCOUNTER 2025-07-20 10:21 | Outpatient (CLI) | payer BC, SELFPAY | END 2025-07-20 10:22 | disposition home or self-care (01) | LOC: NFLDREF 07-25 15:33 | PROVIDERS: Referring Provider Advanced Practice Midwife; Visit Provider Obstetrics & Gynecology | DX: O10.913 Unspecified pre-existing hypertension complicating pregnancy, third trimester (principal); O99.213 Obesity complicating pregnancy, third trimester; E66.01 Morbid (severe) obesity due to excess calories; Z3A.36 36 weeks gestation of pregnancy | CPT/HCPCS: 82565; 82570; 84156; 84450; 84460 ==

== ENCOUNTER 2025-07-20 10:22 | Outpatient (CLI) | payer BC, SELFPAY ==
--- NOTE | 2025-07-20 10:15 | CRLHL7_ITS ---
For Patients: As a result of the Century Cures Act, medical imaging exams and procedure reports are released immediately into your electronic medical record. You may view this report before your referring provider. If you have questions, please contact your health care provider. OB ULTRASOUND BIOPHYSICAL PROFILE CLINICAL HISTORY: CHTN. TECHNIQUE: Real time carmona scale imaging of the fetus was performed. Transabdominal imaging performed. COMPARISON: 07/06/2025, 06/22/2025, 05/25/2025. FINDINGS: JERSON by US: 08/13/2025. GA: 36 weeks 4 days. Gestation: Single. Cervix: Not visualized. Positioning: Vertex. Amniotic Fluid: 5.8 cm SDP. Biophysical Profile: Gross Body Movements: 2 Tone: 2 Respiratory Activity: 2 Amniotic Fluid SDP: 2 Total Score: 8 Placenta: Technique: TA. Placenta Position: Posterior. Dopplers: Heart Rate: 154 bpm. Biometry: BPD: 9.5 cm, 38 weeks 5 days. 96.7% HC: 34.0 cm, 39 weeks 1 day. 82.1% AC: 32.9 cm, 36 weeks 6 days. 69.9% FL: 7.0 cm, 36 weeks 0 days. 33.4% FL/AC Ratio: 21.4% HC/AC Ratio: 1.0. EFW: 3117 grams, 6 lb 14 oz. Age by this US: 37 weeks 5 days. JERSON by this US: 08/05/2025. Percentile by JERSON: 68.5% IMPRESSION: 1. Sonographic gestational age 37 weeks 5 days and sonographic due date 08/05/2025. Sonographic age is 8 days ahead of the clinical age. 2. Estimated weight 69th percentile. Abdominal circumference 70th percentile. 3. Normal biophysical profile 03/23. Charlie Saul M.D. Diagnostic Radiologist [email or web address] Transcribed: 11:44 am DW/Dictated by: Charlie Saul MD @ 07/20/2025 11:17:00 AM (Electronically Signed)
== END 2025-07-20 10:23 | disposition home or self-care (01) ==
LOC: US 10:22
PROVIDERS: Visit Provider Obstetrics & Gynecology
DX: O10.913 Unspecified pre-existing hypertension complicating pregnancy, third trimester (principal); O36.63X0 Maternal care for excessive fetal growth, third trimester, not applicable or unspecified; Z3A.36 36 weeks gestation of pregnancy
CPT/HCPCS: 76816; 76819

== ENCOUNTER 2025-07-23 05:50 | Inpatient (IN) | payer BC, SELFPAY ==
[2025-07-23] VITALS (19 sets, daily range): BP systolic 112–154; BP diastolic 54–94; PULSE 49–98; RESP 16; TEMP 36.3–36.9; O2SAT 89–99; BMI 56.0
[2025-07-23 06:28] LABS: Hematocrit* 37.6 % (33.0-51.0); Hemoglobin* 11.5 gm/dL (12.0-16.0); Immature Granulocytes Abs Auto 0.14 K/uL (0.00-0.30); Immature Granulocytes Pct Auto 1.4 %; Mean Corpuscular HGB Conc 31 gm/dL (32-36); Mean Corpuscular Hemoglobin 26 pg (26-34); Mean Corpuscular Volume 84 fL (80-100); RDW Coefficient of Variation % 21.3 % (11.5-15.5); Red Blood Count* 4.46 m/uL (4.00-5.20); White Blood Count* 9.71 K/uL (4.50-11.00)
[2025-07-23 06:36] LABS: Lymphocytes Absolute Auto 1.80 K/uL (0.90-2.90)
[2025-07-23 06:37] LABS: Slide Review Reflex Yes
[2025-07-23] MEDS: LACTATED RINGERS 1000 ML 1,000 ML 999 ML IV (06:37)
--- NOTE | 2025-07-23 07:14 | P.LDBA_ITS ---
Subjective History of Present Illness Date Seen: 07/23/25 Narrative: Patient is being admitted to Labor and Delivery for repeat delivery. She is a 20 year old at 37 0/7 weeks gestation. Her full history and physical was dictated by Dr. Bella on 07/13. Please see this for details. Specific Issues/Plans Boyfriend: Daniel, share 1 daughter together Daughter: Carolyn NOT COMPLIANT WITH CARE RECOMMENDATIONS Must transfer for weight greater than or equal to 350 lbs (helicopter weight limit) # Significant mental health history. History of suicide attempt x2, last at age 15 Severe depression, anxiety, ADD, borderline personality disorder, trichotillomania She self discontinued her medications in previous ARMANI 16/PHQ 20 at [facility]. Thoughts of self harm reported occasionally but denied at time of visit Declines referral for therapy/counseling 12/27 04/26/2025: Psychiatric Inpatient Hospitalization for Suicidal Ideation. Discharged 04/30 on Zyprexa 5-10 mg TID PRN and Zoloft 25 mg QD. Did not FU after discharge with therapist neither psychiatrist Declines medication and therapy recommendations 05/26/25 # Chronic HTN (on meds) * In ED on 02/06 w/ BP 151/98 * Baseline labs 02/27/25: Creatinine 0.4, platelets 215, AST 19, ALT 10 * 24hr urine: 336 mg. Nephrology consult ordered. * Nurse visit for BP teaching and cuff 03/07/25 * Begin labetalol 100 mg b.i.d. Reports adherence to medication regimen 07/13 * Delivery recommended at 37-39 6/7 weeks. #Anemia * 28 weeks: 10.3mg/dL * iron supplements recommended * Hemoglobin 10.0 on 06/22/2025 * IV iron infusion 07/09/25 # Hx of c/s 02/22/24 failed IOL: cytotec, Cook, pitocin, no cervical change. 39w1d Desires repeat w/ tubal: Primary insurer: [employer]. Will check prior authorization to determine if coverage provided for 19 yo Chance of successful : 9.7% RECOMMEND RLTCS Federal tubal consent: cannot sign Federal Tubal consent as she will be <21 yo at the time of delivery Surgical scheduling form submitted for repeat at 37 weeks due to chronic HTN on medication. 07/23/[address] Bella and Abbey. # Closely spaced pregnancies: last delivery 02/22/24, conceived in November 2024 # On Ozempic at conception Stopped around 4-5 weeks MFM consult ordered 12/27 # Obesity, pre- BMI 52.4 Hemoglobin A1c: 5.5% Referral to community resource consultant: Offered, pt declines at this time; PLEASE ENCOURAGE NEXT VISIT Referral to anesthesia: Completed with previous (12/07/2023) Level 2 ultrasound and consult with MFM: 03/19/2025. Follow-up with MFM in five weeks for suboptimal anatomy. Weekly testing starting at 34 weeks? Growth US at 28 and 34 weeks? Delivery recommended: 39 0/7-39 6/7 weeks.? Discussion of Transfer of Care if weight is > 350 lbs. # Teen , will be 20 by JERSON Mother is supportive and helpful, now living with FOB # Recurrent SAB in 1st trimester No testing to determine cause Consider antiphospholipid testing, karyotype if desires future # 1st child born with cardiac defect, (TAPVC, or Total Anomalous pulmonary venous connection) Open heart surgery within 1 week of life Level II US: completed, see below echo: Suspected partial Anomalous Return of the tight upper Pulmonary vein Recommendations: 1. No additional echocardiograms needed during . 2. Delivery can occur at [place] as planned. 3. 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 Imagin03/19/2025 level two ultrasound: EFW 70%, AC 70%, no anomalies, MVP 3.5 cm, posterior placenta without previa. Recommendations: Patient will return in five weeks for suboptimal anatomy and echo. Weekly testing is recommended beginning at 34 weeks gestation. 05/03/2025 Follow-up US: 1. SIUP. 2. Remaining anatomic survey completed with abnormal four chamber heart seen again. Peds cardiology identified partial anomalies to pulmonary vein. No other anomalies were identified. 3. EFW 80%ile. 4. Amniotic fluid appears normal. Recommendations: Again recommend growth at 28 weeks and 34 weeks with weekly testing starting at 34 weeks. Covid:declines Flu: 06/28/25 TDAP:06/08/25 RSV: 06/28/25 Mental Health:06/22/25 PHQ9-19, GAD7-14 Hgb: GBS: collected 07/13 H&P: 07/13/25 Dr. Bella OB - Problem Based A/P Additional Plan (1) History of delivery affecting : Status: Acute (2) Chronic hypertension affecting : Status: Acute Delivery/Labor/Induction Plan Plan: Section OB Exam Physical Exam Vital signs: Temp Pulse BP 98.4 F 70 120/67 07/23/25 06:22 07/23/25 06:22 07/23/25 06:22 Narrative: Physical exam: General: No acute distress Psych: Alert and oriented x3, full affect HEENT: Normocephalic, atraumatic Heart: Regular rate and rhythm, no murmur rub or gallop Lungs: Clear to auscultation bilaterally Abdomen: Soft, nontender, gravid Lower extremities: No edema or erythema
[2025-07-23 07:37] LABS: Slide Review Acceptable Review (Acceptable)
[2025-07-23] MEDS: LACTATED RINGERS 1000 ML 1,000 ML 125 ML IV ×2 (07:40→08:37)
--- NOTE | 2025-07-23 08:39 | P.ANES_ITS ---
Anesthesia Charges Start Date/Time Anesthesia Start Date: 07/23/25 Anesthesia Start Time: 07:28 Stop Date/Time Anesthesia Stop Date: 07/23/25 Anesthesia Stop Time: 09:02 Coding CPT Codes CPT Codes: ANESTH CS DELIVERY - 88171 ([id number]) P3 - PATIENT W/SEVERE SYS DISEASE, QK - PRINTING TABLE WORKER 2-4 CNCRNT ANES PROC, QX - INJECTION MOLDING PROCESS TECHNICIAN SVC W/ MD MED DIRECTION
--- NOTE | 2025-07-23 08:39 | P.NB_ITS ---
Nerve Block Nerve Block Time Seen by Provider: 08:50 Date Seen: 07/23/25 Type of block requested by surgeon for post-operative analgesia: TAP Side: bilateral Time out performed: Yes Verification of patient name: Yes Verification of date of : Yes Site marking: site marked Name of person performing procedure: Filipe Boone Continuous monitoring Was continuous monitoring of O2 sat, B/P, cardiac rehabilitation specialist, recorded every 15 minutes?: Yes Procedure Checklist: sterile prep, needles and gloves Ultrasound guided. Images saved: Yes Medications given in 5ml increments after negative aspiration: Marcaine %: 0.25 mL: 30 Needle gauge: 20 and Exparel mL: 10 Needle gauge: 20 Patient tolerated procedure well: Yes Additional comments: Injected in 5ml increments after negative aspiration Block Charges Block Charge (with Pro Fee): TAP Bilateral Use of Ultrasound Machine for Block: Yes- US Guidance/pain block
--- NOTE | 2025-07-23 08:39 | W.ANESCHARGE ---
Anesthesia Charges Start Date/Time Anesthesia Start Date: 07/23/25 Anesthesia Start Time: 07:28 Stop Date/Time Anesthesia Stop Date: 07/23/25 Anesthesia Stop Time: 09:02 Coding CPT Codes CPT Codes: ANESTH CS DELIVERY - 82812 ([id number]) P3 - PATIENT W/SEVERE SYS DISEASE, QK - EDGE BANDING OFF BEARER 2-4 CNCRNT ANES PROC, QX - REPLANTING MACHINE CREW SVC W/ MD MED DIRECTION
--- NOTE | 2025-07-23 08:42 | W.PM.GYNPROC ---
Procedure Note Date of procedure: 07/23/25 Will [facility] bill your pro fee for this procedure?: Yes Pre-op diagnosis: Chronic hypertension complicating 37 weeks, 0 days gestation Previous delivery Post-op diagnosis: Same Procedure: Repeat delivery Anesthesia: spinal Complications: None Surgeon: Kimi Bella MD Estimated blood loss (mL): 359 IV fluids (mL): 2,000 Urine Output (mL): 25 Pathology: specimen obtained, sent to pathology (placenta) Condition: stable Disposition: floor Findings: 1. Female , cephalic OA presentation, Apgars of 8 and 9, weight 3445 g 2. Thin lower uterine segment. Otherwise normal appearance to uterus, bilateral tubes and ovaries Procedure Description: Patient was taken to the operating room with IV running. She received cefazolin in preoperative prophylaxis. Spinal anesthesia had previously been administered. Chu catheter was inserted. She was prepped and draped in the usual sterile fashion. Anesthesia was tested and found to be adequate. A low-transverse skin incision was made with a scalpel and carried through to the underlying layer of fascia with the scalpel. The subcutaneous fat was dissected off the underlying fascia with blunt dissection. The fascia was nicked in the midline with a scalpel, and this incision was extended laterally with scissors. The fascia was dissected off the underlying rectus muscles in the midline superiorly using scissors. The rectus muscles were in the midline. Peritoneum was identified and entered bluntly. Bovie was used to widen this opening laterally. Gus O retractor was inserted and tightened down, providing excellent visualization of the lower uterine segment. The bladder reflection was found to be well below the planned site for hysterotomy. Low-transverse uterine incision was made with a scalpel. Incision was widened bluntly. The 's head was grasped through the hysterotomy and delivered with the help of fundal pressure. The remainder of the body delivered without incident. Cord was clamped and cut after 30 seconds. was handed off to attending nurses. The placenta was delivered with gentle traction on the cord. The uterus was cleaned of all clots and debris with the dry lap pad. The uterus was exteriorized. The hysterotomy was reapproximated with 0 Vicryl in a running, locked fashion. A few imbricating sutures of 0 Vicryl were required to further close a rent in the lower uterine segment and to obtain hemostasis. The adnexa were examined and noted to be normal in appearance. The cul-de-sac was cleansed of clot and debris. The uterus was returned to the abdomen. The gutters were cleansed with dampened laparotomy sponge, removing any further clots and debris. The Gus O retractor was removed. The hysterotomy was reexamined and found to be hemostatic. The peritoneum was reapproximated with 2 0 Vicryl in a running fashion. The rectus muscles were examined and found to be hemostatic. The fascia was reapproximated with 0 looped PDS in a running fashion. Subcutaneous fat was irrigated and Bovie used on oozing vessels. The subcutaneous fat was reapproximated with 2 0 plain gut suture in an interrupted fashion. The skin was closed with a subcuticular stitch of 4-0 Monocryl. Steri-Strips and silver dressing were applied above this. Patient tolerated procedure well was taken to recovery area in stable condition.
--- NOTE | 2025-07-23 09:13 | P.ANES_ITS ---
Anesthesia Charges Start Date/Time Anesthesia Start Date: 07/23/25 Anesthesia Start Time: 07:28 Stop Date/Time Anesthesia Stop Date: 07/23/25 Anesthesia Stop Time: 09:02 Coding CPT Codes CPT Codes: ANESTH CS DELIVERY - 12759 ([id number]) QK - TAIL DOGGER 2-4 CNCRNT ANES PROC, QX - DEGREASER OPERATOR SVC W/ MD MED DIRECTION, P3 - PATIENT W/SEVERE SYS DISEASE
--- NOTE | 2025-07-23 09:13 | W.ANESCHARGE ---
Anesthesia Charges Start Date/Time Anesthesia Start Date: 07/23/25 Anesthesia Start Time: 07:28 Stop Date/Time Anesthesia Stop Date: 07/23/25 Anesthesia Stop Time: 09:02 Coding CPT Codes CPT Codes: ANESTH CS DELIVERY - 14648 ([id number]) QK - K 8 SCHOOL PRINCIPAL 2-4 CNCRNT ANES PROC, QX - WHEEL BORER SVC W/ MD MED DIRECTION, P3 - PATIENT W/SEVERE SYS DISEASE
[2025-07-23] MEDS: ACETAMINOPHEN 500 MG TABLET 1000 MG PO (11:00)
[2025-07-23] MEDS: ENOXAPARIN 40 MG/0.4 ML INJ SUBCUT (20:49)
[2025-07-24 01:00] VITALS: BP 111/71; PULSE 77; RESP 16; O2SAT 98
[2025-07-24] MEDS: ACETAMINOPHEN 500 MG TABLET 1000 MG PO ×4 (01:18→23:00)
[2025-07-24 04:30] VITALS: BP 119/64; PULSE 82; RESP 18; TEMP 36.8; O2SAT 94
[2025-07-24 06:29] LABS: Hematocrit* 31.1 % (33.0-51.0); Hemoglobin* 9.4 gm/dL (12.0-16.0); Immature Granulocytes Abs Auto 0.10 K/uL (0.00-0.30); Immature Granulocytes Pct Auto 1.0 %; Lymphocytes Absolute Auto 2.04 K/uL (0.90-2.90); Mean Corpuscular HGB Conc 30 gm/dL (32-36); Mean Corpuscular Hemoglobin 26 pg (26-34); Mean Corpuscular Volume 85 fL (80-100); RDW Coefficient of Variation % 21.4 % (11.5-15.5); Red Blood Count* 3.64 m/uL (4.00-5.20); White Blood Count* 10.01 K/uL (4.50-11.00)
[2025-07-24 06:30] LABS: Slide Review Reflex No
[2025-07-24 06:47] LABS: Alanine Aminotransferase* 11 U/L (4-35); Aspartate Amino Transferase* 18 U/L (12-35); Blood Urea Nitrogen* 9 mg/dL (5-24); Creatinine* 0.5 mg/dL (0.5-1.5); Est. Creatinine Clearance* 168.02; Estimated Glomerular Filt Rate 138 ml/min
--- NOTE | 2025-07-24 08:01 | PM.OBPNVD1 ---
OB - PN:Subj Subjective Date Seen: 07/24/25 Narrative: Cosmo is a 20 year old who was admitted for scheduled repeat and proceeded to have a ?. She has been normotensive since about 8pm last evening. She is on BP medication currently, nifedipine xr 30mg BID. She has significant mental health struggles and is not currently on medication for that either. The patient feels well.?States she is open to starting on the sertraline to stay on top of her mood imbalances. The pain is well controlled with current medications.? She has no new complaints.?Urinary output is adequate and she is voiding without difficulty.? Has a good appetite, is tolerating a general diet, is passing flatus, and has not had a bowel movement.? Has scant amount of rubra lochia.? She is ambulating well. She is bottlefeeding formula and does not want to pump. She reports it is going well.? OB - PN: Obj Exam Physical Exam: Vital signs: Temp Pulse Resp BP Pulse Ox O2 Del Method 98.3 F 82 18 119/64 94 Room Air 07/24/25 04:30 07/24/25 04:30 07/24/25 04:30 07/24/25 04:30 07/24/25 04:30 07/24/25 04:30 Narrative: GENERAL APPEARANCE:? normal affect, alert, no distress MOOD:? appropriate CHEST:? clear to auscultation HEART:? regular rate and rhythm ABDOMEN:? soft, non-tender the uterine fundus is 1 fingerbreadth below the Umbilicus, Midline and is appropriate for the stage of recovery. EXTREMITIES:? normal and mild edema Incision: Silvadene dressing intact with no surrounding erythema, or discharge OB - PN: Obj Data Labs Labs: Laboratory Results - last 24 hr 07/24/25 06:10 WBC 10.01 RBC 3.64 L Hgb 9.4 L Hct 31.1 L MCV 85 MCH 26 MCHC 30 L RDW Coeff of Niki 21.4 H Plt Count 148 Neut % (Auto) 69.4 Lymph % (Auto) 20.4 [place] % (Auto) 8.5 Eos % (Auto) 0.5 Baso % (Auto) 0.2 Neut # (Auto) 6.95 Lymph # (Auto) 2.04 [place] # (Auto) 0.90 Eos # (Auto) 0.05 Baso # (Auto) 0.02 Abs Immat Gran (auto) 0.10 Imm/Tot Granulo (auto) 1.0 BUN 9 Creatinine 0.5 Estimated Creat Clear 168.02 Estimated GFR 138 AST 18 ALT 11 OB - PN: A/P Delivery Assessment and Plan (1) care and examination: Status: Acute (2) S/P repeat low transverse : Status: Acute (3) Depression: Status: Acute (4) Borderline personality disorder: Status: Acute (5) Oppositional defiant disorder: Status: Acute (6) Anxiety: Status: Acute (7) ADD (attention deficit disorder): Status: Acute (8) Obesity, morbid, BMI 50 or higher: Status: Acute Plan Comments: PP day #1 Routine care Initiate sertraline 50mg daily and iron every other day Anticipate discharge 07/25/2025
[2025-07-24 08:31] VITALS: BP 106/67; PULSE 72; RESP 18; O2SAT 98
[2025-07-24] MEDS: ENOXAPARIN 40 MG/0.4 ML INJ SUBCUT ×2 (08:54→20:46)
[2025-07-24] MEDS: FERROUS SULFATE 325 MG TABLET PO (08:55)
[2025-07-24] MEDS: SERTRALINE 50 MG TABLET PO (08:55)
[2025-07-24] MEDS: DOCUSATE SODIUM 100 MG CAPSULE PO (08:55)
[2025-07-24] MEDS: SODIUM CHLORIDE 0.9 % (FLUSH) 10 ML SYRINGE IVF (08:55)
[2025-07-24 13:08] VITALS: BP 120/73; PULSE 98; RESP 16; TEMP 36.9; O2SAT 94
--- NOTE | 2025-07-24 15:35 | PC.SOCIAL ---
Social work consult: yarn dry room worker attempted to meet with the pt around 3:30pm, but she was in the bathroom. This hospital social worker told the pt that this worker would stop back later today or in the morning. Social work to follow-up as needed.
[2025-07-24 17:17] VITALS: BP 100/62; PULSE 69; RESP 16; TEMP 36.6; O2SAT 97
[2025-07-24] MEDS: IBUPROFEN 600 MG TABLET PO (20:46)
[2025-07-24 20:55] VITALS: BP 130/63; PULSE 72; RESP 24; TEMP 36.8; O2SAT 98
[2025-07-25 01:03] VITALS: BP 136/82; PULSE 68; RESP 20; TEMP 36.6; O2SAT 97
[2025-07-25] MEDS: IBUPROFEN 600 MG TABLET PO ×2 (02:17→08:43)
[2025-07-25 04:27] VITALS: BP 137/79; PULSE 61; RESP 16; TEMP 36.4; O2SAT 98
[2025-07-25] MEDS: ACETAMINOPHEN 500 MG TABLET 1000 MG PO (05:19)
[2025-07-25 08:40] VITALS: BP 123/77; PULSE 82; RESP 16; O2SAT 98
[2025-07-25] MEDS: SERTRALINE 50 MG TABLET PO (08:43)
[2025-07-25] MEDS: ENOXAPARIN 40 MG/0.4 ML INJ SUBCUT (08:43)
[2025-07-25] MEDS: DOCUSATE SODIUM 100 MG CAPSULE PO (08:44)
--- NOTE | 2025-07-25 09:05 | P.DS_ITS ---
DS: Providers Provider Date Seen: 07/25/25 Date of admission: 07/23/25 05:50 Primary care physician: Not a Local Provider Admitting Clinician: Kimi Bella MD Attending Physician on discharge: Melissa Grijalva APRN, CNM DS: Diagnosis Discharge Diagnosis (1) S/P repeat low transverse : Status: Acute (2) care and examination: Status: Acute (3) Electronic cigarette use: Status: Acute (4) Chronic hypertension affecting : Status: Acute (5) Depression: Status: Acute (6) ADD (attention deficit disorder): Status: Acute (7) Anxiety: Status: Acute (8) Oppositional defiant disorder: Status: Acute (9) depression: Status: Acute (10) Borderline personality disorder: Status: Acute Exam Narrative: Exam Narrative: GENERAL APPEARANCE:? normal affect, alert, no distress MOOD:? appropriate CHEST:? clear to auscultation HEART:? regular rate and rhythm ABDOMEN:? soft, non-tender the uterine fundus is At Umbilicus, Midline and is appropriate for the stage of recovery. EXTREMITIES:? normal and +1 edema INCISION: Silver dressing in place; clean, dry, and intact Const: Vital Signs, click to edit/add: Vital Signs - 24 hr 07/24/25 13:08 07/24/25 17:17 07/24/25 20:55 Temperature 98.4 F 97.8 F 98.2 F Pulse Rate [Pulse Oximeter] 98 69 72 Respiratory Rate 16 16 24 Blood Pressure [Le ft Arm] 120/73 100/62 Blood Pressure [Ri ght Arm] 130/63 Pulse Oximetry 94 97 98 Oxygen Delivery Me thod Room Air Room Air Room Air 07/25/25 01:03 07/25/25 04:27 07/25/25 08:40 Temperature 97.9 F 97.6 F Pulse Rate [Pulse Oximeter] 68 61 82 Respiratory Rate 20 16 16 Blood Pressure [Le ft Arm] Blood Pressure [Ri ght Arm] 136/82 137/79 123/77 Pulse Oximetry 97 98 98 Oxygen Delivery Me thod Room Air Room Air Nasal Can nula Room Air Nasal Can nula Documenting provider has reviewed patient's vital signs: yes OB - DS: Summary Hospital Course Hospital Course: Cosmo is a 37 y.o. G 5 P 2 who was admitted to [facility] for repeat c/s. ?She had a section that was uncomplicated. The patient feels well. ?The pain is well controlled with current medications. ?She has no new complaints. ?She is formula feeding. the patient has done well.? Vitals have been stable.? She has remained afebrile.? Has a good appetite, is tolerating a general diet. ?She is voiding without difficulty.? She is passing gas and has not had a bowel movement.? She is ambulating and denies any dizziness.? Has small amount of rubra lochia. She is undecided about prevention. She has a silver dressing in place. She has a significant mood history and started zoloft yesterday. Reviewed and offered Nicholase, she would be a great candidate. Patient agrees and desires. Problems: HTN, PP Depression, anemia Discharge home with baby.? Follow up in 2 weeks and 6 weeks.? , may see if needed? Hgb 9.4. Iron supplement ordered orally every other day? Chronic HTN Take meds as prescribed, Nifedipine 30 mg BID Labs WNL or stable with trending? Discharge home with BP cuff if does not already have one? Follow up in 3-5 days? Call for signs/symptoms of preeclampsia? PPD with significant mood history. Will start prior authorization for Nicholase. Continue to take 50 mg of sertraline daily. For pain control of incision, breast and pelvic pain, take 600 mg Ibuprofen every 6 hours as needed by mouth or 1000 mg acetaminophen (Tylenol) every 6 hours by mouth as needed. You can alternate these so you are taking something every 3 hours as needed. A heating pad can also be used for your abdomen or breasts. You may also take docusate sodium up to twice daily to soften your stools and help to prevent constipation. You may wean off of it when your stools return to normal.? Peripartum Data delivery method: Repeat Section Procedures: Procedures Operation Date: 07/23/25 07:15 Actual Procedure Side Surgeon p Repeat Section Kimi Bella MD complications: none Infant Gender: Female Time Spent with Patient Time attestation: Total time spent providing and/or coordinating discharge services: Discharge Plan Discharge Disposition: Home, Self-Care Date of Admission: 07/23/25 05:50 Attending Provider on Discharge: Melissa Grijalva Primary Care Provider: Provider,Not a Local Condition: Stable Anticipated Discharge Date/Time: 07/25/25 12:00 Discharge Medications: New acetaminophen 500 mg Tablet 1,000 mg PO Q6H PRN (Reason: Pain) Qty: 0 0RF docusate sodium 100 mg Capsule 100 mg PO DAILY Qty: 60 0RF ferrous sulfate 325 mg (65 mg iron) Tablet 325 mg PO Q48H Qty: 60 0RF nifedipine 30 mg Tablet Extended Release 30 mg PO BID Qty: 60 1RF ibuprofen 600 mg Tablet 600 mg PO Q6H PRN (Reason: Pain) Qty: 60 0RF sertraline 50 mg Tablet 50 mg PO DAILY Qty: 90 0RF oxycodone 5 mg Tablet 5 - 10 mg PO Q4H PRN (Reason: Pain) Qty: 15 0RF Continued multivitamin [Daily Multi-Vitamin] Tablet 1 tab PO QAM Discontinued aspirin [Adult Aspirin Regimen] 81 mg tablet,delayed release (DR/EC) 81 mg PO QDAY Qty: 90 2RF labetalol 100 mg tablet 100 mg PO BID bupropion HCl 150 mg tablet extended release 24 hr PO Patient Comments: Patient reports that she is not currently taking but would like to start Rx Instructions: Take 150 mg by mouth every morning Discharge Orders: Discharge Order (Routine); Ordered 07/25/25 Ordered By: Melissa Grijalva Patient Education: Bupivacaine Liposome (By injection), OB /Bottle Feeding Additional Instructions: Discharge instructions were reviewed with the patient including signs and symptoms of infection and home going medications Lifting Restrictions: 20 pounds for 6 weeks No not submerge incision under water X 2 weeks? Nothing vaginally for 6 weeks: no tampons or intercourse Off Work or School for 6 weeks Symptoms to report to doctor: * Bleeding that saturates more than one pad per hour * Passing clots larger than the size of a golf ball * Pain not relieved by prescribed medication * Fever above 100.4 degrees Fahrenheit * A foul vaginal odor * Difficulty in emotions, mood, and functions * Thoughts of hurting yourself and/or * Painful, reddened area in your breast * Any drainage, redness, or tenderness in your IV/epidural site * Severe headache that doesn't improve after taking medications * Changes in vision, including temporary loss of vision, blurred vision, and/or light sensitivity * Upper abdominal pain (usually under ribs on the right side) * Decrease in urination or painful, frequent urinating * Chest pain * Shortness of breath * Tenderness or pain with redness and/swelling in the calf(s) of your leg [facility] for [facility] BP check?3-5 days Call with BP greater than or equal to 160/110 1-week for silver dressing removal 2-week visit: incision check, discuss infant feeding concerns, review control options and screen for anxiety/depression. 6-week visit for an annual exam. consultation services are available to all mothers and babies for the first year after delivery.? To make an appointment, please call [phone]. Activity Level: Activity as Tolerated Discharge Diet: Regular Follow Up Appointments: [facility] [Provider Group] Forms: [facility] Info Instructions
--- NOTE | 2025-07-25 09:44 | PC.SOCIAL ---
Addendum entered by BO Vigil 07/25/25 09:56: Social work consult: industrial workers plans to do a follow-up check-in phone call on Wednesday of this week 07/27/25 with the pt to see how she is doing after returning home. Social work to follow-up as needed. Original Note: Social work consult: industrial workers met with the pt, her partner and her nurse before discharge. The pt's nurse was going through discharge instructions with the pt. Pt lives in [place] and has a history of suicidal ideation and suicide attempts when she was a teenager. industrial workers provided her with mental health resources specific to [facility]. industrial workers also provided her with the [facility] mental health crisis number. Pt states that she has a mental health ulisses that she uses for therapy and plans to start taking medication for her Depression and Anxiety after this hospital stay. Pt states that she does not have a PCP at this time, but plans to do her post- follow-up care through [facility]. Social work to follow-up as needed.
--- NOTE | 2025-08-02 14:34 | PC.SOCIAL ---
Social work note: milking worker attempted to call the pt today for a general support check-in, but the pt did not answer and this worker left a voicemail. Social work to follow-up as needed.
== END 2025-07-25 09:49 | disposition home or self-care (01) | DRG 540 ==
PROVIDERS: Admitting Provider Obstetrics & Gynecology; Visit Provider Obstetrics & Gynecology
PROC: 10D00Z1 Extraction of Products of Conception, Low, Open Approach (ICD-10-PCS; CPT 59514; principal; 2025-07-23 07:15)
DX: O34.211 Maternal care for low transverse scar from previous cesarean delivery (principal); O10.92 Unspecified pre-existing hypertension complicating childbirth; Z3A.37 37 weeks gestation of pregnancy; Z37.0 Single live birth; O99.02 Anemia complicating childbirth; D64.9 Anemia, unspecified; O99.824 Streptococcus B carrier state complicating childbirth; O99.344 Other mental disorders complicating childbirth; F32.A Depression, unspecified; F41.9 Anxiety disorder, unspecified; F60.3 Borderline personality disorder; F91.3 Oppositional defiant disorder; F98.8 Other specified behavioral and emotional disorders with onset usually occurring in childhood and adolescence; Z79.899 Other long term (current) drug therapy; O99.334 Smoking (tobacco) complicating childbirth; F17.290 Nicotine dependence, other tobacco product, uncomplicated; O99.345 Other mental disorders complicating the puerperium; F53.0 Postpartum depression; G89.18 Other acute postprocedural pain; O10.913 Unspecified pre-existing hypertension complicating pregnancy, third trimester; O36.63X0 Maternal care for excessive fetal growth, third trimester, not applicable or unspecified; Z3A.36 36 weeks gestation of pregnancy
CPT/HCPCS: 01961; 36415; 64488; 76942; 82565; 84450; 84460; 84520; 85018; 85025; 85027; 86780; 86850; 86900; 86901; A4314; A9270; J0665; J0666; J0690; J1650; J1885; J2371; J2590; J3010; J7120